=== PATIENT | female | born 1990 ===

== ENCOUNTER 2017-08-25 18:19 | Inpatient (IN) | payer MEDICAID, SELFPAY ==
[2017-08-25] MEDS ORDERED: Phenaphthazine-PH Test Paper VI ONE (18:34)
[2017-08-25 19:04] VITALS: BMI 25.2
[2017-08-25] MEDS ORDERED: Oxytocin 30 units/LR 500ML 30 U/500 ML BAG IV SCH ×2 (19:15→19:54)
[2017-08-25] MEDS: Lactated Ringer's 1,000 ML IV SCH ×2 (19:30→20:45)
[2017-08-25 19:47] LABS: BASO # 0.1 K/uL (0.0-0.2); BASO % 0.6 % (0.0-2.0); EOS % 0.4 % (0.0-4.0); HEMOGLOBIN 12.5 g/dL (12.0-16.0); LYMPH # 2.8 K/uL (1.0-4.3); LYMPH % 25.5 % (20.0-40.0); MEAN CELL VOLUME 86.1 fl (81.0-99.0); MEAN CORPUSCULAR HEMOGLOBIN 30.5 pg (27.0-31.0); MEAN CORPUSCULAR HGB CONC 35.4 g/dL (33.0-37.0); MEAN PLATELET VOLUME 11.5 fl (7.2-11.7); MONO # 0.6 K/uL (0.0-0.8); MONO % 5.1 % (0.0-10.0); NEUT # 7.5 K/uL (1.8-7.0); NEUT % 68.4 % (50.0-75.0); NRBC % 0.1 % (0.0-0.0); RBC 4.12 Mil/uL (3.80-5.20); RED CELL DISTRIBUTION WIDTH 15.1 % (11.5-14.5)
[2017-08-25] MEDS ORDERED: Penicillin G Potassium 5 MU in Sodium Chloride 0.9% 50 ML IVPB ONE (20:49)
[2017-08-25] MEDS ORDERED: Oxytocin 30 units/LR 500ML 30 U/500 ML BAG IV ONE (21:48)
--- NOTE | 2017-08-25 22:45 | OBHP ---
Datetime: 08/25/2017 19:10 IP Adm Impression: Term, intrauterine ; Active labor; Ruptured Membranes IP Admit Plan: Admit to unit; Initiate labor protocol; Observation/Evaluation Admit Comment, IP Provider: CC: ROM HPI: 26 YO @ 39 wks IUP presents to [facility] with concerns of ROM. Pt states that this afterno on at 14:00, pt had a large amount of fluid per vagina, she felt like she was urinating. The fluid wa s clear per pt, no foul smell. Pt also states that she has been having ctx since last night (around 1 1PM), they have remain similiarmin intensity, but have become more frequent over the past couple of h rs (q15 mins). Endorsing good FM, no VB and +LOF and CTX. Denies chest pain, dyspnea, fever, chill, n /v/d/c. GBS unknown MD: Hansel blood : no complications during the thus far. Anemia. Denies STIs labs: O+, ab neg, rpr neg, HIV, HBsag, HIV, rubells and GBS status are unknown. PMH: spherocytosis, transfusion as 6YO x 3 SurgH: Splenectomy 1995 SH: , denies ETOH, smoking and illict drug use Allergies: NKDA Meds: PNV, Iron PE: Vitals: WNL GEN: NAD HEENT: EOMI Cardio: S1S2 no murmurs Resp: clear breath sounds b/l Abdomen: gravid, BS+, NT Ext: NT, no edema noted Spec: Pooling in vaginal vault, nitrazine light blue Cervix: 5/90/0 FM: 160, ctx q 4-5 mins A/P: 26 YO @ 39wks IUP is admitted for active labor. -admit pt -start labor protocol -blood work -start IVF -continue monitor -Prental labs reviewed, incomplete. Unknown for GBS, HbSag, hiv and rubella -continue to monitor progression of labor Pt seen and examined with Dr. Em Winkler, PGY I Pelvic Type - PN: Adequate Extremities - PN: Normal Abdomen - PN: Normal Back - PN: Not Done Breast - PN: Not Done Lungs - PN: Normal Heart - PN: Normal Thyroid - PN: Not Done Neurologic - PN: Normal HEENT - PN: Normal General - PN: Normal FHR - Baseline A Provider: 160 Amniotic Fluid Color, Provider: Clear Membranes, Provider: Ruptured Pool Provider: Positive Nitrazine Provider: Positive EGA AdmitDate IP: 39.0 Vital Signs Provider: Reviewed; Within Normal Limits IP Chief Complaint: Uterine contractions; Suspected ruptured membranes NICHD Variability Prov Fetus A: Moderate 6-25bpm NICHD Accel Fetus A IP Provider: 15X15 FHR Category Provider Fetus A: Category I Dilatation, Provider: 5 Effacement, Provider: 90 Station, Provider: 0 Genitourinary Exam: Normal DTRs - PN: Not Done
[2017-08-25] MEDS ORDERED: Lidocaine 1% Inj (20ml) ONE (22:47)
[2017-08-25] MEDS ORDERED: Oxycodone/Acetaminophen 5/325 mg Tab PO PRN ×2 (23:52)
[2017-08-25] MEDS ORDERED: Benzocaine/Menthol SPRAY TOP PRN (23:52)
[2017-08-26] MEDS ORDERED: Lactated Ringer's 1,000 ML IV SCH ×3 (02:30→16:21)
[2017-08-26] MEDS: Lactated Ringer's 1,000 ML IV SCH ×2 (04:34→11:15)
[2017-08-26 06:32] LABS: HEMOGLOBIN 7.4 g/dL (12.0-16.0); MEAN CELL VOLUME 87.7 fl (81.0-99.0); MEAN CORPUSCULAR HEMOGLOBIN 30.6 pg (27.0-31.0); MEAN CORPUSCULAR HGB CONC 34.9 g/dL (33.0-37.0); RBC 2.43 Mil/uL (3.80-5.20); RED CELL DISTRIBUTION WIDTH 14.8 % (11.5-14.5); WHITE BLOOD COUNT 15.7 K/uL (4.8-10.8)
[2017-08-26 08:18] LABS: MEAN CELL VOLUME 89.8 fl (81.0-99.0); MEAN CORPUSCULAR HEMOGLOBIN 32.1 pg (27.0-31.0); MEAN CORPUSCULAR HGB CONC 35.8 g/dL (33.0-37.0); RBC 1.16 Mil/uL (3.80-5.20); RED CELL DISTRIBUTION WIDTH 14.9 % (11.5-14.5); WHITE BLOOD COUNT 8.3 K/uL (4.8-10.8)
--- NOTE | 2017-08-26 08:21 | PCM.RRT ---
HOSPITAL AIDES AND ASSISTANTS TEACHER Nurse Assessment - Situation HOSPITAL AIDES AND ASSISTANTS TEACHER Called By: RN - IV IV Inserted during HOSPITAL AIDES AND ASSISTANTS TEACHER?: No I.Reason for HOSPITAL AIDES AND ASSISTANTS TEACHER - A) Acute Change in Patient: Subjective: HOSPITAL AIDES AND ASSISTANTS TEACHER Call Time: :55 HOSPITAL A[employer]ES AND ASSISTANTS TEACHER Arrival Time: :55 HOSPITAL AIDES AND ASSISTANTS TEACHER Location: Post- Room 3-1 S: HOSPITAL AIDES AND ASSISTANTS TEACHER was called by RN on a 26 y/o F s/p natural vaginal delivery due to pre- syncope episode. Pt get up from bed, assisted by nurse and went to restroom when suddenly collapsed and was contained by RN. Pt reports feeling dizzy and weak. No LOC, seizure-like activity or loss of bladder control. O: --Vital Signs: BP 110/55; HR 133; Sat O2 100% --Physical Exam: > Gen: Pt seemed confused but responsive to tactile stimulation. Pt became verbal after a few seconds, awake, alert and oriented x3. > HEENT: remarkably pale conjunctiva, mucous membrane pale and dry. > Skin: presence of pallor. No erythema, dermatitis or ictericia appreciated > CV: tachycardia, S1 S2 present. > Lungs: CTAB. > EXT: pulses present. No edema or cyanosis. HOSPITAL AIDES AND ASSISTANTS TEACHER Interventions: --Pt placed on bed, laying down. --CBC stat ordered. --EKG ordered and performed. Unremarkable results. --Blood bank called for 2 PRBC's transfusion initiation. Repeated vital signs: BP 105/65, HR 67, Sat O2 100%. A/P: 26 y/o F , s/p vaginal delivery day 1, had post- hemorrhage, Hgb dropped from 12.5 to 7.4 after delivery, with a pre-syncope episode. - 2 PRBC's will be transfused. - Review CBC stat results. - CBC after 1 PRBC's. - Monitor vital signs. - Ibuprofen 800mg TID, PRN for pain. HOSPITAL AIDES AND ASSISTANTS TEACHER ended: 08:10 HOSPITAL A[employer]ES AND ASSISTANTS TEACHER Leader: Dr Strickland. HOSPITAL AIDES AND ASSISTANTS TEACHER Resident: Dr Ellis PGY-1.
[2017-08-26 08:27] LABS: HEMOGLOBIN 3.7 g/dL (12.0-16.0)
--- NOTE | 2017-08-26 09:05 | CARD ---
APPROVED REPORT EKG Measurement Heart [id number] <Conclusion> Sinus rhythm with short NC Otherwise normal ECG
--- NOTE | 2017-08-26 10:23 | OBDS ---
MATERNAL INFORMATION Provider Comments: Uncomplicated spontaneous vaginal delivery of a viable female infant with BW of 3 190gms and scores of 9 and 9 delivered in vtx presentation over an intact perineum. EBL- 250mls. Pt tolerated the procedure well. LABOR SUMMARY EDC: 09/01/2017 00:00 MEMBRANES Membranes Rupture Method: Spontaneous Rupture of Membranes: 08/25/2017 14:00 Amniotic Fluid Color: Clear Amniotic Fluid Amount: Moderate Amniotic Fluid Odor: Normal PRESENTATION/POSITION BABY A Presentation: Cephalic
--- NOTE | 2017-08-26 10:23 | OBADHP ---
Datetime: 08/25/2017 19:10 Admit Comment, IP Provider: CC: ROM HPI: 26 YO @ 39 wks IUP presents to [facility] with concerns of ROM. Pt states that this afterno on at 14:00, pt had a large amount of fluid per vagina, she felt like she was urinating. The fluid wa s clear per pt, no foul smell. Pt also states that she has been having ctx since last night (around 1 1PM), they have remain similiarmin intensity, but have become more frequent over the past couple of h rs (q15 mins). Endorsing good FM, no VB and +LOF and CTX. Denies chest pain, dyspnea, fever, chill, n /v/d/c. GBS unknown MD: Hansel blood : no complications during the thus far. Anemia. Denies STIs labs: O+, ab neg, rpr neg, HIV, HBsag, HIV, rubells and GBS status are unknown. PMH: spherocytosis, transfusion as 6YO x 3 SurgH: Splenectomy 1995 SH: , denies ETOH, smoking and illict drug use Allergies: NKDA Meds: PNV, Iron PE: Vitals: WNL GEN: NAD HEENT: EOMI Cardio: S1S2 no murmurs Resp: clear breath sounds b/l Abdomen: gravid, BS+, NT Ext: NT, no edema noted Spec: Pooling in vaginal vault, nitrazine light blue Cervix: 5/90/0 FM: 160, ctx q 4-5 mins A/P: 26 YO @ 39wks IUP is admitted for active labor. -admit pt -start labor protocol -blood work -start IVF -continue monitor -Prental labs reviewed, incomplete. Unknown for GBS, HbSag, hiv and rubella -continue to monitor progression of labor Pt seen and examined with Dr. Em Winkler, PGY I Pelvic Type - PN: Adequate Extremities - PN: Normal Abdomen - PN: Normal Back - PN: Not Done Breast - PN: Not Done Lungs - PN: Normal Heart - PN: Normal Thyroid - PN: Not Done Neurologic - PN: Normal HEENT - PN: Normal General - PN: Normal FHR - Baseline A Provider: 160 Amniotic Fluid Color, Provider: Clear Membranes, Provider: Ruptured Pool Provider: Positive Nitrazine Provider: Positive Vital Signs Provider: Reviewed; Within Normal Limits IP Chief Complaint: Uterine contractions; Suspected ruptured membranes NICHD Variability Prov Fetus A: Moderate 6-25bpm NICHD Accel Fetus A IP Provider: 15X15 FHR Category Provider Fetus A: Category I Dilatation, Provider: 5 Effacement, Provider: 90 Station, Provider: 0 Genitourinary Exam: Normal DTRs - PN: Not Done EGA AdmitDate IP: 39.0 IP Adm Impression: Term, intrauterine ; Active labor; Ruptured Membranes IP Admit Plan: Admit to unit; Initiate labor protocol; Observation/Evaluation
[2017-08-26] MEDS ORDERED: Ammonia 2% Inhalant ONE (10:49)
[2017-08-26 11:13] LABS: HEMOGLOBIN 7.9 g/dL (12.0-16.0); MEAN CELL VOLUME 86.5 fl (81.0-99.0); MEAN CORPUSCULAR HEMOGLOBIN 30.5 pg (27.0-31.0); MEAN CORPUSCULAR HGB CONC 35.3 g/dL (33.0-37.0); RBC 2.6 Mil/uL (3.80-5.20); RED CELL DISTRIBUTION WIDTH 14.5 % (11.5-14.5); WHITE BLOOD COUNT 13.7 K/uL (4.8-10.8)
[2017-08-26] MEDS ORDERED: Benzocaine/Menthol SPRAY TOP PRN (16:21)
[2017-08-26] MEDS ORDERED: Docusate-Senna 50 mg-8.6 mg Tab PO SCH (22:00)
[2017-08-27 06:18] LABS: HEMOGLOBIN 8.1 g/dL (12.0-16.0); MEAN CORPUSCULAR HEMOGLOBIN 30.4 pg (27.0-31.0); MEAN CORPUSCULAR HGB CONC 34.6 g/dL (33.0-37.0); RBC 2.66 Mil/uL (3.80-5.20); RED CELL DISTRIBUTION WIDTH 14.8 % (11.5-14.5); WHITE BLOOD COUNT 12.7 K/uL (4.8-10.8)
--- NOTE | 2017-08-27 10:49 | OBDCSUM ---
Datetime: 08/27/2017 07:01 Discharged to, Provider: Home Follow up at, Provider: your doctor Disch Instr Activity: May be up to bathroom; May be up for meals; May Shower Disch Instr Diet: Regular Discharge Instructions, Provider: Routine instructions given Discharge Diagnosis, Provider: Term Delivered Follow up in weeks, Provider: in 6 weeks Contraception discussed, Prov: Yes Disch Activity Restrictions: No exercising; No lifting; Minimize stair-climbing; No sexual activity; Nothing in vagina - [place], tampons, douche Discharge Comment, Provider: Discharge to home today Take feosol 325 mg three time daily with orange juice or vitamin C capsule take ibuprofen 600 mg 1 tab every 6 hours as needed for pain Encourage . Ambulation with caution,nothing per vaginal, no heavy lifting, if excessive bleeding or fever w/o relief from pain medications go to ED. Also, if you develop any dizziness, blurry vision, weakness, racing heart go to ED. Follow up at your clinic in 6 weeks for visit. Discharge Diagnosis Prov Other: Severe anemis - hemorrhage - transfused 2untis PRBC Contraception after Delivery: Undecided
--- NOTE | 2017-08-27 10:49 | OBPPN ---
Datetime: 08/27/2017 06:55 PP Pain Prov: Within normal limits PP Nausea Prov: Denies PP Flatus Prov: Yes PP BM Prov: Yes PP Heart Prov: Normal PP Lungs Prov: Normal PP Abdomen/Uterus Prov: Normal PP Lochia Prov: Normal PP CVA Tenderness Prov: Normal PP Extremities Prov: Normal PP Impression Prov: Normal progression PP Plan Prov: Discharge PP Progress Note Prov: PPD 2 26 y/o female now on PPD 2 seen and examined at bedside this morning. Pt had an episode of near-syncope yesterday morning. Pt received 2 units pRBC and IV venofar due to post- hemorrhag e. Pt's H_H after 1 units of pRBC was 7.9. Pt's vitals have been stable for >24 hrs. Pt's reports she feels fine today. Denies any dizziness, blurry vision, chest pain, palpitation, dyspnea or calf pain . This morning pt reports pain is controlled with pain medications. Pt is ambulating well without di zziness or blurry vision. Pt reports BM last night. Pt is tolerating PO. Pt is the baby w/o difficulty. Denies nausea, vomiting, fever, chills. Physical Exam: General: A_O, resting comfortably in bed, NAD HEENT: oral mucosa moist. Lungs: CTA B/L, no wheezing, rhonchi or rales CVS: RRR, S1, S2 ABD: ND, +BS, firm fundus @ umbilical level. Soft, appropriate TTP. EXT: no edema, negative Josesito's sign, Neuro/psych: AAOX3. Assessment: 26 y/o female now doing well on PPD 2 hemorrhage resolved Asymptomatic anemia Plan: H_H this morning 8.1/23.4, pt is asymptomatic and has stable vitals. Discharge to home today Ibuprofen 600 mg 1 tab po prn q6 if moderate/severe pain Feosol 325 mg PO TID Encourage . Ambulation with caution,nothing per vaginal, no heavy lifting, if excessive bleeding or fever w/o relief from pain medication go to ED. Follow up with your doctor in 6 weeks for visit. Sultan Kaur, pgy-1 Case d/w on-call OB Hospitalist OB Hospitalist on-call. On rounds this morning, I saw patient and agree with note. WAQAR ERICKSON PP Procedures: Transfusion Vital Signs Provider PP: Reviewed; Within Normal Limits
--- NOTE | 2017-08-27 10:51 | OBPPN ---
Datetime: 08/26/2017 09:09 PP Pain Prov: Within normal limits PP Nausea Prov: Denies PP Flatus Prov: Yes PP BM Prov: No PP Heart Prov: Normal PP Lungs Prov: Normal PP Abdomen/Uterus Prov: Normal PP Lochia Prov: Normal PP Vulva/Perineum Prov: Normal PP CVA Tenderness Prov: Normal PP Extremities Prov: Normal PP Progress Note Prov: S: POPULATION HEALTH COACH was called by RN at 07:55 on a 26 y/o F s/p natural vaginal delivery d ue to pre-syncope episode. Pt get up from bed, assisted by nurse and went to restroom when suddenly c ollapsed and was contained by RN. Pt reports feeling dizzy and weak. No LOC, seizure-like activity or loss of bladder control. O: --Vital Signs: BP 110/55; HR 133; Sat O2 100% --Physical Exam: > Gen: Pt seemed confused but responsive to tactile stimulation. Pt became verbal after a few sec onds, awake, alert and oriented x3. > HEENT: remarkably pale conjunctiva, mucous membrane pale and dry. > Skin: presence of pallor. No erythema, dermatitis or ictericia appreciated > CV: tachycardia, S1 S2 present. > Lungs: CTAB. > EXT: pulses present. No edema or cyanosis. POPULATION HEALTH COACH Interventions: --Pt placed on bed, laying down. --CBC stat ordered. --EKG ordered and performed. Unremarkable results. --Blood bank called for 2 PRBC's transfusion initiation. Repeated vital signs: BP 105/65, HR 67, Sat O2 100%. POPULATION HEALTH COACH ended at 08:10 am. A/P: 26 y/o F , s/p vaginal delivery day 1, had post- hemorrhage, Hgb dropped from 12.5 t o 7.4 after delivery, had a pre-syncope episode. >NEW RESULTS FORM STAT CBC SHOWED A HGB OF 3.7. Most probably due to hemodilution from IV line inf usion. - 2 PRBC's are being transfused. - CBC after 1 PRBC's. - Monitor vital signs. - Ibuprofen 800mg TID, PRN for pain. -IV Iron after transfusion. Case discussed with Dr De Jesus, OB stock control supervisor. Rhonda PGY-1. Attending addendum: Note during the POPULATION HEALTH COACH evaluation was present. Subjective: Patient without complaints at present I: hemorrhage Secondary anemia Stable vital signs Plan: Repeat CBC following completion of 1st unit of rbc. For IV Venofer following completion of both units. IP PP Procedures: Transfusion Vital Signs Provider PP: Reviewed Datetime: 08/26/2017 06:55 PP Impression Prov: Normal progression PP Plan Prov: Continue present management
[2017-08-27 19:45] VITALS: BP 100/67; PULSE 71; RESP 18; TEMP 97.7; O2SAT 100
== END 2017-08-27 14:51 | disposition home or self-care (01) | DRG 372 ==
LOC: H.EROB2 18:19 → H.L&D 19:04 → H.OB/GYN 08-26 01:30
PROVIDERS: ADMIT Obstetrics & Gynecology; ATTEND Obstetrics & Gynecology
PROC: 4A1HXCZ Monitoring of Products of Conception, Cardiac Rate, External Approach (ICD-10-PCS; 2017-08-25)
PROC: 10E0XZZ Delivery of Products of Conception, External Approach (ICD-10-PCS; principal; 2017-08-26)
PROC: 30233N1 Transfusion of Nonautologous Red Blood Cells into Peripheral Vein, Percutaneous Approach (ICD-10-PCS; 2017-08-26)
DX: O72.1 Other immediate postpartum hemorrhage (principal); O90.81 Anemia of the puerperium; D64.89 Other specified anemias; Z37.0 Single live birth; Z3A.39 39 weeks gestation of pregnancy; Z90.81 Acquired absence of spleen